=== PATIENT | male | born 1990 | race Caucasian/White ===

== ENCOUNTER 2018-04-19 13:32 | Emergency (ER) | payer OTHER ==
[~2018-04-19] VITALS: Ht 177.8 cm; Wt 90.7 kg
[2018-04-19] MEDS ORDERED: BACTROBAN NASAL1 GM (13:48)
[2018-04-19] MEDS ORDERED: BACTRIM 400-801 EACH (13:48)
== END 2018-04-19 15:23 | disposition home or self-care (01) ==
LOC: ER 13:32
DX: L02.416 Cutaneous abscess of left lower limb (principal)

== ENCOUNTER 2018-07-07 18:07 | Emergency (ER) | payer OTHER ==
[~2018-07-07] VITALS: Ht 177.8 cm; Wt 90.7 kg
[~2018-07-07 18:07] MED LIST: BACTRIM 400-801 EACH; BACTROBAN NASAL1 GM
== END 2018-07-07 20:01 | disposition home or self-care (01) ==
LOC: ER 18:07
DX: L03.115 Cellulitis of right lower limb (principal)

== ENCOUNTER 2019-02-07 16:40 | Emergency (ER) | payer OTHER ==
[~2019-02-07] VITALS: Ht 180.3 cm; Wt 93.0 kg
== END 2019-02-07 23:08 | disposition home or self-care (01) ==
LOC: ER 16:40
DX: M54.5 Low back pain (principal)

== ENCOUNTER 2022-07-29 06:41 | Outpatient (CLI) | payer OTHER | END 2022-07-29 06:42 | disposition home or self-care (01) | LOC: LAB 06:41 | PROVIDERS: ATTEND Obstetrics & Gynecology | DX: Z20.828 Contact with and (suspected) exposure to other viral communicable diseases (principal); Z20.818 Contact with and (suspected) exposure to other bacterial communicable diseases ==